=== PATIENT | male | born 1985 | race Caucasian/White ===

== ENCOUNTER → 2017-10-23 | Day surgery (SDC) | payer BC ==
[~2017-10-23] MED LIST: Propofol 200 MG/20 ML SDV IV ONE
[2017-10-23] MEDS: Lactated Ringers 1,000 ML IV SCH (10:25)
--- NOTE | 2017-10-26 08:15 | OR ---
DATE OF OPERATION: 10/23/2017 PREOPERATIVE DIAGNOSIS: HEMATOCHEZIA. POSTOPERATIVE DIAGNOSIS: HEMATOCHEZIA. SURGEON: Govind Dyson MD PROCEDURE: FULL-LENGTH COLONOSCOPY WITH BIOPSIES X6. 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 COMPLICATIONS: None. SPECIMEN: Colon biopsies x6, see op note. FINDINGS: Left-sided colitis likely ulcerative in nature. RECOMMENDATIONS: The patient will have close followup with primary physician, Dr. Angelo Gonzalez for biopsy reports. He will be placed on a steroid burst at this time. INDICATIONS: The patient has been having a 2-week history of nonspecific abdominal bloating and diarrhea associated with bloody stools. Dr. Gonzalez sent him for colonoscopy. DESCRIPTION OF PROCEDURE: The patient was prepped and draped, placed in left lateral decubitus position. A lubricated Olympus colonoscope was inserted and very cautiously advanced to the cecum. The patient has a very inflamed colitis on most of the left colon extending to approximated mid to distal transverse area. After that, the patient's colon was cleaned, really get into the terminal ileum and there were no lesions there. We easily visualized the ileocecal valve and appendiceal orifice. Upon withdrawal, the cecum, ascending, and most of the transverse colon were benign. The patient had evidence of colitis extending from the mid to distal transverse colon all the way through to the anus, most of this was full thickness with ulcerative lesions throughout and lot of slough mucosa, very friable tissue, bled very easily. We did random biopsies from the transverse all the way down to the rectum, total of 6 were done for pathologic verification. No other polyps, lesions, or masses were seen. No retroflexion was done in the rectum due to the inflammatory nature. Air was then suctioned. The scope was removed without complication. DEO/EMANI /[id number]
== END ==
LOC: CC.SDS 10:09
PROVIDERS: ATTEND Family Medicine
DX: K52.9 Noninfective gastroenteritis and colitis, unspecified (principal); Z88.1 Allergy status to other antibiotic agents; Z79.899 Other long term (current) drug therapy
CPT/HCPCS: J2704; J7120